=== PATIENT | female | born 1945 | race Caucasian/White ===

== ENCOUNTER 2023-03-23 12:15 | Outpatient (RCR) | payer OTHER ==
[~2023-03-23 12:15] MED LIST: AMITRIPTYLINE100 MG PO; BUPROPION XL150 MG PO; GABAPENTIN300 MG PO; GLIPIZIDE5 MG PO; LAMOTRIGINE200 MG PO; LEVEMIR SC; LEVOFLOXACIN250 MG PO; LEXAPRO10 MG PO; METOCLOPRAMIDE10 MG PO; METRONIDAZOLE500 MG PO; MOBIC15 MG PO; ULTRAM50 MG PO
== END 2023-04-14 23:09 | disposition home or self-care (01) ==
LOC: WCC 12:15
PROVIDERS: ATTEND Plastic Surgery
DX: T81.89XA Other complications of procedures, not elsewhere classified, initial encounter (principal)

== ENCOUNTER 2023-03-27 14:55 | Outpatient (RCR) | payer OTHER | END 2023-04-14 23:09 | disposition home or self-care (01) | LOC: WCC 14:55 | PROVIDERS: ATTEND Plastic Surgery | DX: T81.89XA Other complications of procedures, not elsewhere classified, initial encounter (principal) ==

== ENCOUNTER 2023-04-13 12:39 | Outpatient (RCR) | payer OTHER ==
[~2023-04-13 12:39] MED LIST changes: +LIDOCAINE HCL 5% OINMENT 35.44 GM TUBE TP ONE
== END 2023-04-14 23:10 | disposition home or self-care (01) ==
LOC: WCC 12:39
PROVIDERS: ATTEND Plastic Surgery
DX: T81.89XA Other complications of procedures, not elsewhere classified, initial encounter (principal)

== ENCOUNTER 2023-05-13 10:29 | Outpatient (RCR) | payer OTHER ==
[~2023-05-13 10:29] MED LIST changes: -LIDOCAINE HCL 5% OINMENT 35.44 GM TUBE TP ONE; +LIDOCAINE VISC 2% SOLN 15 ML UDC ONE
== END 2023-05-14 ==
LOC: WCC 10:29
PROVIDERS: ATTEND Plastic Surgery
DX: T81.89XA Other complications of procedures, not elsewhere classified, initial encounter (principal)